=== PATIENT | male | born 1945 | race Caucasian/White ===

== ENCOUNTER → 2016-04-04 | Outpatient (REF) | payer MEDICARE ==
[~2016-04-04] MED LIST: /AUGM875TA; /WARF4TA; AMLO10TA; ANTI25TA; BISO10TA3 PO; CALC0.5C PO; CATA0.1T; CIPR-250 PO; CIPR500T19 PO; CLONI1TA PO; COUM1TAB17 PO; COUM1TAB19 PO; DARV100T; DOCU100C PO; DOXY100C PO; DRIS50002 PO; FURO40TA2 PO; GLIP5TAB15 PO; GLIP5TAB20; GLIP5TAB8 PO; HYDR-3719 PO; HYDR10T PO; INSULANT SC; LABE200T; LANO0.1211; LASI40TA; LISI5TAB; LOPR50TA; MINO25TA PO; MULT1TAB8 PO; PERC5TAB6 PO; POTA20TA PO; PRAV1TAB39 PO; PRAV40TA2 PO; PRIN10TA; SLOW142T PO; VERA180C PO; ZEBE5TAB
== END ==
LOC: M LAB REF 13:29
PROVIDERS: ATTEND Internal Medicine Nephrology
DX: N18.9 Chronic kidney disease, unspecified (principal); D63.1 Anemia in chronic kidney disease